=== PATIENT | female | born 1960 | race Caucasian/White ===

== ENCOUNTER → 2016-11-08 | Outpatient (CLI) | payer MEDICAID ==
[~2016-11-08] MED LIST: BACTRIM 400 MG-1 TAB PO; DULOXETINE60 MG PO; ESTRADIOL1 MG PO; LORATADINE 10MG10 M1 PO; PERCOCET 325 MG1 TA4 PO; PRILOSEC20 MG PO
[2016-11-08 13:57] LABS: AMPHETAMINES/METAMPHETAMINES NEGATIVE ng/mL (<1000)
== END ==
LOC: LAB 12:54
PROVIDERS: Emergency Medicine
DX: Z79.899 Other long term (current) drug therapy (principal)